=== PATIENT | male | born 1960 | race Caucasian/White ===

== ENCOUNTER → 2020-12-06 | Outpatient (CLI) | payer BC | LOC: KOH-I 12:41 | DX: R53.83 Other fatigue (principal); R05 Cough | CPT/HCPCS: 71046 ==

== ENCOUNTER → 2021-06-27 | Outpatient (CLI) | payer BC | LOC: KOH-I 14:36 | DX: M25.571 Pain in right ankle and joints of right foot (principal); M19.071 Primary osteoarthritis, right ankle and foot | CPT/HCPCS: 73610; 73630 ==